=== PATIENT | male | born 1980 | race American Indian/Alaskan Native ===

== ENCOUNTER 2017-04-15 14:27 | Emergency (ER) | payer OTHER ==
[2017-04-15 14:43] VITALS: BP 117/75
--- NOTE | 2017-04-15 15:34 | XRay Report ---
LEFT FINGERS, 3 VIEWS History: Rule out fracture. Findings: Normal bone mineralization. No acute osseous findings or joint pathology. Normal soft tissues. Impression: Normal left fingers.
--- NOTE | 2017-04-15 16:16 | Emergency Department Report ---
Upper Extremity - HPI Chief Complaint: Extremity Injury, Upper Stated Complaint: LEFT FINGER INJURY Time Seen by Provider: 04/15/17 16:07 Upper Extremity: Left Index Finger (she reports that he slammed his left index finger in door, pain, swelling) Occurred When: Today Mechanism: Hit with Object Severity: severe (9/10, throbbing, better with rest and worse with movement. No [id number] medication taken for pain) Symptoms: Yes Pain with Movement (index finger, left), Yes Limited Range of Movement (index finger,left), Yes Swelling (index finger,left), No Deformity, No Numbness, No Weakness, No Bruising/Ecchymosis, No Laceration or Abrasion Other History: Pt here complaining of left index finger pain after slamming it in door today. Reports pain 9 out of 10 that source of movement better with rest. No [id number] pain medication taken prior to coming to the emergency room. Patient denies any radiation of pain or any numbness or tingling. ED Review of Systems ROS: Stated complaint: LEFT FINGER INJURY Other details as noted in HPI Comment: All other systems reviewed and negative Constitutional: no symptoms reported Cardiovascular: denies: chest pain, palpitations, edema, syncope Gastrointestinal: denies: nausea, vomiting Musculoskeletal: joint swelling, arthralgia. denies: back pain, myalgia Skin: denies: rash Neurological: denies: headache, weakness, numbness, paresthesias, confusion, abnormal gait, vertigo ED Past Medical Hx - Past Medical History Previous Medical History?: Yes Hx Asthma: Yes - Surgical History Past Surgical History?: No - Family History Family history: no significant - Social History Smoking Status: Never Smoker Substance Use Type: None - Medications Home Medications: Home Medications Medication Instructions Recorded Confirmed Last Taken Type Ibuprofen [Motrin] 600 mg PO Q8H PRN 5 Days #15 tablet 04/15/17 Unknown Rx Upper Extremity Exam - Exam General: Vital signs noted. No distress. Alert and acting appropriately. This is a 36-year-old male well-nourished well-developed in no acute distress Head and Torso: No HEENT Abnormality, No Neck Tenderness, No Chest/Lungs Abnormality, No Abdominal Tenderness, No Back Tenderness Shoulder Exam: Yes Normal Range of Motion in Shoulder, No Shoulder Tenderness, No Clavicle Tenderness, No Shoulder Deformity, No AC Joint Tenderness Arm Exam: No Arm/Humerus Tenderness, No Arm Deformity Elbow: Yes Normal Range of Motion in Elbow, No Elbow Tenderness, No Elbow Deformity Forearm: No Forearm Tenderness, No Forearm Deformity, No Pain with Pronation, No Pain with Supination Wrist: Yes Normal ROM in Wrist, No Wrist Tenderness, No Wrist Deformity, No Snuffbox Tenderness, No Pain with Axial Thumb Compression Hand: Yes Normal ROM in Digit(s), No Hand Tenderness, No Hand Deformity, No Digit Tenderness, No Digit(s) Deformity (patient with swelling to left index finger. Positive tenderness without any bony abnormality), No Tendon Dysfunction CMS Exam: Yes Broken Skin (with small abrasion to left index finger proximal phalanx and distal phalanx), Yes Normal Distal Pulses, Yes Normal Capillary Refill, Yes Normal Distal Sensation ED Course Vital Signs 04/15/17 14:41 Temperature 98.8 F Pulse Rate 59 L Respiratory 18 Rate Blood Pressure 117/75 O2 Sat by Pulse 97 Oximetry - Reevaluation(s) Reevaluation #1: 04/15/17 17:35 Patient given strict update tetanus, left index finger abrasions cleansed with normal saline and Neosporin ointment placed inside. Patient with contusion to left index finger and metal finger splint placed inside. He was given [place] 5/ 325 2 tablets in the emergency room for pain. See procedure note for detail on splinted. - Orthopedic Splinting/Casting Injury #1 Side: left Upper Extremity Injury Location: finger (index finger) Upper Extremity Immobilizer: aluminum form splint, finger (other) (left index finger) Additional Comments: Patient with good neurovascular check status post splint placement. ED Medical Decision Making - Radiology Data Radiology results: report reviewed X-ray of left index finger reveal no fracture or dislocation. Patient with soft tissue swelling to left index finger. - Medical Decision Making ED Course: An status post left index finger injury. He is complaining of pain and swelling to left index finger after slamming door on finger. X-ray report revealed patient without any bony abnormality and with soft tissue swelling. I discussed the patient that his x-ray was negative for any bone fracture but he has contusion which is swelling on the bone to his left index finger. Patient was given [place] 5/325 2 tablets in the emergency room. He has 2 abrasion to his left index finger to mid and distal phalanx. Area cleansed with normal saline and Neosporin ointment placed inside. Patient given Boostrix 0.5 mL to update tetanus and finger metal splint placed. Rice protocol explained to patient . He voiced understanding of discharge instruction, diagnosis and treatment plan and discharged home in stable condition with prescription for Motrin and to follow-up with orthopedic doctor if he continues to have pain. Critical care attestation.: If time is entered above; I have spent that time in minutes in the direct care of this critically ill patient, excluding procedure time. ED Disposition Clinical Impression: Finger pain, left Contusion of left index finger Qualifiers: Encounter type: initial encounter Damage to nail status: without damage Qualified Code(s): S60.022A - Contusion of left index finger without damage to nail, initial encounter Disposition: TO HOME OR SELFCARE Is pt being admited?: No Does the pt Need Aspirin: No Condition: Stable Instructions: Contusion in Adults (ED), Splint Care (ED), Finger Sprain (ED), Arthralgia (ED), RICE Therapy (ED) Additional Instructions: Keep affected areas clean and dry Follow instructions on RICE therapy Take motrin as prescribed Follow up with Orthopedist as discussed Prescriptions: Ibuprofen [Motrin] 600 mg PO Q8H PRN 5 Days #15 tablet PRN Reason: Pain Referrals: PRIMARY CAREMD [Primary Care Provider] - 3-5 Days JAROD OCONNELL MD [Staff Physician] - 3-5 Days Forms: Accompanied Note, Work/School Release Form(ED)
[2017-04-15] MEDS ORDERED: BOOSTRIX IM ONE (16:27)
[2017-04-15] MEDS ORDERED: TRIPLE ANTIBIOTIC TP ONE (16:27)
[2017-04-15] MEDS ORDERED: NORCO 5/325 PO ONE (16:27)
== END 2017-04-15 18:01 | disposition home or self-care (01) ==
LOC: ED 14:27
DX: S60.022A Contusion of left index finger without damage to nail, initial encounter (principal); W23.0XXA Caught, crushed, jammed, or pinched between moving objects, initial encounter; Y93.89 Activity, other specified; Y92.89 Other specified places as the place of occurrence of the external cause; Y99.8 Other external cause status
CPT/HCPCS: 90471; 90715; 99283; A6250

== ENCOUNTER 2017-06-04 19:35 | Emergency (ER) | payer OTHER ==
[2017-06-04 21:35] LABS: Basophils % (Auto) 0.7 % (0.0-1.8); Eosinophils # (Auto) 0.2 K/mm3 (0.0-0.4); Eosinophils % (Auto) 2.4 % (0.0-4.3); Hematocrit 45.8 % (35.5-45.6); Hemoglobin 15.4 gm/dl (11.8-15.2); Lymphocytes % (Auto) 29.6 % (13.4-35.0); Mean Corpuscular HGB Conc 34 % (32-34); Mean Corpuscular Hemoglobin 32 pg (28-32); Mean Corpuscular Volume 94 fl (84-94); Monocytes # (Auto) 0.6 K/mm3 (0.0-0.8); Monocytes % (Auto) 8.5 % (0.0-7.3); Platelet Count 214 K/mm3 (140-440); Red Blood Count 4.86 M/mm3 (3.65-5.03); Red Cell Distribution Width 13.5 % (13.2-15.2)
[2017-06-04 21:38] LABS: Alanine Aminotransferase 28 units/L (7-56); Albumin 4.3 g/dL (3.9-5); BUN/Creatinine Ratio 13; Blood Urea Nitrogen 12 mg/dL (9-20); Hemolysis Index 6
[2017-06-04 21:43] LABS: Bilirubin,Urine NEG (Negative); Blood,Urine SM (Negative); Color,Urine Straw (Yellow); Nitrite,Urine NEG (Negative); Protein,Urine <15 mg/dL mg/dL (Negative); Urobilinogen,Urine < 2.0 mg/dL (<2.0); WBC,Urine < 1.0 /HPF (0.0-6.0)
[2017-06-04 22:00] VITALS: BP 114/71
[2017-06-04] MEDS ORDERED: MORPHINE IV ONE (22:41)
--- NOTE | 2017-06-04 22:49 | Emergency Department Report ---
HPI - General Chief Complaint: Abdominal Pain Time Seen by Provider: 06/04/17 22:15 - HPI HPI: This is a 36-year-old male presents to the emergency department from home with complaint of a 3 day history of some right sided abdominal pain that appears to be worst in the right lower quadrant. It is associated with some nausea without vomiting. He denies any fever, diarrhea, constipation, dysuria, discharge. He took some Tylenol for his pain without much relief. The pain increases with movement. He has a past medical history of asthma. He does not have a primary care physician. No recent travel or sick contacts at home. ED Past Medical Hx - Past Medical History Hx Asthma: Yes - Surgical History Past Surgical History?: No - Social History Smoking Status: Never Smoker Substance Use Type: Alcohol - Medications Home Medications: Home Medications Medication Instructions Recorded Confirmed Last Taken Type Ibuprofen [Motrin] 600 mg PO Q8H PRN 5 Days #15 tablet 04/15/17 Unknown Rx HYDROcodone/ACETAMINOPHEN [[place] 1 each PO Q8H PRN #8 tablet 06/05/17 Unknown Rx 5-325 Tablet] ED Review of Systems ROS: Stated complaint: ABDOMINAL PAIN Other details as noted in HPI Comment: All other systems reviewed and negative Constitutional: denies: chills, fever Eyes: denies: eye pain, eye discharge, vision change ENT: denies: ear pain, throat pain Respiratory: denies: cough, shortness of breath, wheezing Cardiovascular: denies: chest pain, palpitations Gastrointestinal: abdominal pain, nausea. denies: vomiting Genitourinary: denies: urgency, dysuria Musculoskeletal: denies: back pain, joint swelling, arthralgia Skin: denies: rash, lesions Neurological: denies: headache, weakness, paresthesias Physical Exam - Physical Exam Vital Signs: Vital Signs 06/04/17 06/04/17 19:58 21:57 Temperature 98.6 F 98.9 F Pulse Rate 89 78 Respiratory 14 18 Rate Blood Pressure 119/70 Blood Pressure 114/71 [Right] O2 Sat by Pulse 96 97 Oximetry Physical Exam: GENERAL: The patient is well-developed well-nourished. HENT: Normocephalic. Atraumatic. Patient has moist mucous membranes. EYES: Extraocular motions are intact. Pupils equal reactive to light bilaterally. NECK: Supple. Trachea is midline. CHEST/LUNGS: Clear to auscultation. There is no respiratory distress noted. HEART/CARDIOVASCULAR: Regular. There is no tachycardia. There is no murmur. ABDOMEN: Abdomen is soft there is some tenderness to palpation to the right upper and lower quadrants. No guarding or rebound tenderness.. Patient has normal bowel sounds. There is no abdominal distention. SKIN: Skin is warm and dry. NEURO: The patient is awake, alert, and oriented. The patient is cooperative. The patient has no focal neurologic deficits. The patient has normal speech. MUSCULOSKELETAL: There is no tenderness or deformity. There is no limitation range of motion. There is no evidence of acute injury. ED Course Vital Signs 06/04/17 06/04/17 19:58 21:57 Temperature 98.6 F 98.9 F Pulse Rate 89 78 Respiratory 14 18 Rate Blood Pressure 119/70 Blood Pressure 114/71 [Right] O2 Sat by Pulse 96 97 Oximetry ED Medical Decision Making - Lab Data Result diagrams: 06/04/17 20:25 06/04/17 20:25 - Radiology Data Radiology results: report reviewed PROCEDURE: CT ABDOMEN PELVIS W CON TECHNIQUE: Computerized axial tomography of the abdomen and pelvis was performed after the IV injection of iodinated nonionic contrast. HISTORY: Abd pain COMPARISON: No prior studies are available for comparison. FINDINGS: Visualized lower thorax: No significant abnormality. Liver: Normal size and attenuation. Spleen: Normal size and attenuation. Gallbladder and biliary system: Normal. Pancreas: Normal. Adrenals: Normal. Kidneys: Both kidneys have a normal size. No hydronephrosis. No renal stones or masses. GI tract: The stomach is normal. The small bowel has a normal caliber without obstruction. No ileus or enteritis. The cecum, appendix and colon are normal.. Lymph nodes and mesentery: Normal. Vasculature: Normal. Bladder: Normal. Reproductive organs: Normal. Peritoneum: No free fluid. Musculoskeletal structures: No significant abnormality. Other: None. IMPRESSION: There is no evidence of an acute intestinal or urinary tract obstruction. No ileus or enteritis. The appendix is normal. Transcribed By: [facility] Dictated By: BETH BRISENO MD Electronically Authenticated By: BETH BRISEON MD Signed Date/Time: 06/04/172057 - Medical Decision Making Patient presents with a few days of right-sided abdominal pain. Labs and unremarkable. CT of the abdomen and pelvis with IV contrast does not show any acute process or etiology of his symptoms. He was given some fluid and a dose of pain medication and upon reevaluation is feeling improved. Vital signs stable throughout his ED course. He says he has good follow-up with a primary care physician. He will be discharged home with a very small amount of pain medication and encouragement to see his PCP. He will return to the ER with any worsening of symptoms or any acute distress. - Differential Diagnosis appendicitis, colitis, diverticulitis, gastroenteritis Critical care attestation.: If time is entered above; I have spent that time in minutes in the direct care of this critically ill patient, excluding procedure time. ED Disposition Clinical Impression: Abdominal pain Qualifiers: Abdominal location: unspecified location Qualified Code(s): R10.9 - Unspecified abdominal pain Disposition: TO HOME OR SELFCARE Is pt being admited?: No Condition: Stable Instructions: Abdominal Pain (ED) Additional Instructions: Please follow-up with your primary care physician in the next few days. Return to the emergency Department with any worsening of your symptoms or any acute distress. You have been prescribed a medication that is sedating and therefore should not be taken prior to driving, working, and responsible for children and in no way should be mixed with alcohol of any quantity. Prescriptions: HYDROcodone/ACETAMINOPHEN [[place] 5-325 Tablet] 1 each PO Q8H PRN #8 tablet PRN Reason: Pain Referrals: PRIMARY CARE, [Primary Care Provider] - [facility] Time of Disposition: 01:12
--- NOTE | 2017-06-05 00:59 | Cat Scan Report ---
FINAL REPORT PROCEDURE: CT ABDOMEN PELVIS W CON TECHNIQUE: Computerized axial tomography of the abdomen and pelvis was performed after the IV injection of iodinated nonionic contrast. HISTORY: Abd pain COMPARISON: No prior studies are available for comparison. FINDINGS: Visualized lower thorax: No significant abnormality. Liver: Normal size and attenuation. Spleen: Normal size and attenuation. Gallbladder and biliary system: Normal. Pancreas: Normal. Adrenals: Normal. Kidneys: Both kidneys have a normal size. No hydronephrosis. No renal stones or masses. GI tract: The stomach is normal. The small bowel has a normal caliber without obstruction. No ileus or enteritis. The cecum, appendix and colon are normal.. Lymph nodes and mesentery: Normal. Vasculature: Normal. Bladder: Normal. Reproductive organs: Normal. Peritoneum: No free fluid. Musculoskeletal structures: No significant abnormality. Other: None. IMPRESSION: There is no evidence of an acute intestinal or urinary tract obstruction. No ileus or enteritis. The appendix is normal.
== END 2017-06-05 01:36 | disposition home or self-care (01) ==
LOC: ED 19:35
DX: R10.31 Right lower quadrant pain (principal); J45.909 Unspecified asthma, uncomplicated
CPT/HCPCS: 36415; 74177; 80053; 81001; 85025; 96374; 99284; J2270; Q9967

== ENCOUNTER 2020-03-01 15:21 | Emergency (ER) | payer SELFPAY ==
--- NOTE | 2020-03-01 20:13 | Emergency Department Report ---
ED Laceration HPI - HPI Chief Complaint: Wound/Laceration Stated Complaint: LEFT HAND LAC Time Seen by Provider: 03/01/20 20:00 Occurred When: Today Location: Upper Extremity Severity: mild Tetanus Status: Up to Date Laceration Symptoms: No Foreign Body Sensation, No Numbness, No Weakness, No Pain Other History: The patient was evaluated in the emergency department for symptoms described in the history of present illness. He/she was evaluated in the context of the global COVID-19 pandemic, which necessitated consideration that the patient might be at risk for infection with the virus that causes COVID-19. Institutional protocols and algorithms that pertain to the evaluation of patients at risk for COVID-19 are in a state of rapid change based on information released by regulatory bodies including the CDC and federal and state organizations. These policies and algorithms were followed during the patient's care in the emergency department. Please note that these policies, procedures and recommendations changed on a rapid basis. 39-year-old - [place] male presents to the emergency room for left index laceration from a knife as he was cooking. Patient states that the knife was clean. Did not have much bleeding. Reports he is up-to-date on his tetanus shot. Bleeding is controlled. ED Review of Systems ROS: Stated complaint: LEFT HAND LAC Other details as noted in HPI Comment: All other systems reviewed and negative ED Past Medical Hx - Past Medical History Previous Medical History?: Yes Hx Asthma: Yes - Social History Smoking Status: Never Smoker Substance Use Type: None - Medications Home Medications: Home Medications Medication Instructions Recorded Confirmed Last Taken Type Ibuprofen [Motrin] 600 mg PO Q8H PRN 5 Days #15 tablet 04/15/17 Unknown Rx HYDROcodone/ACETAMINOPHEN [[place] 1 each PO Q8H PRN #8 tablet 06/05/17 Unknown Rx 5-325 Tablet] Ibuprofen [Motrin] 800 mg PO Q8HR PRN #30 tablet 03/17/18 Unknown Rx Sulfamethoxazole/Trimethoprim 2 each PO BID #28 tablet 03/17/18 Unknown Rx [Bactrim DS TAB] Laceration Physical Exam - Exam General: Vital signs noted. No distress. Alert and acting appropriately. Wound Length (cm): 1 Laceration Location: Upper Extremity Laceration Exam: Yes Normal Distal CMS, No Foreign Body, No Exposed Tendon, Vessel, or Nerve, No Tendon Injury ED Course Vital Signs 10/17/20 15:29 Temperature 98.4 F Pulse Rate 77 Respiratory 18 Rate Blood Pressure 152/102 [Right] O2 Sat by Pulse 97 Oximetry - Laceration /Wound Repair Left Finger Wound Location: upper extremity (Left index finger) Wound Length (cm): 1 Wound's Depth, Shape: into muscle Wound Explored: no foreign body removed Irrigated w/ Saline (ccs): 250 Betadine Prep?: Yes Wound Repaired With: Steri-strips, Dermabond Sterile Dressing Applied?: Yes Progress: Tolerated well ED Medical Decision Making - Medical Decision Making 39-year-old -[place] male presents the emergency room for left index laceration from a knife as he was cooking. Patient states that the knife was clean. Did not have much bleeding. Reports he is up-to-date on his tetanus shot. Bleeding is controlled. Index finger was soaked with water and Betadine. Was able to use adhesive glue with Steri-Strips. Instructed patient to keep wound clean and dry do not pick the Steri-Strips further glue. Return if the finger looks swollen red or purulent discharge or comes down with a fever. Patient verbalized understanding Critical care attestation.: If time is entered above; I have spent that time in minutes in the direct care of this critically ill patient, excluding procedure time. ED Disposition Clinical Impression: Laceration of index finger Disposition: DC-01 TO HOME OR SELFCARE Is pt being admited?: No Does the pt Need Aspirin: No Condition: Stable Instructions: Laceration (ED), Skin Adhesive Care (ED) Additional Instructions: Keep wound clean and dry do not pick off Steri-Strips or glue. Return back to the emergency room if there is any swelling redness or purulent discharge. Tylenol or ibuprofen should work with your pain. Referrals: SILVIA SWANSON MD [Primary Care Provider] - 3-5 Days Forms: Work/School Release Form(ED)
[2020-03-01 20:33] VITALS: BP 150/105
== END 2020-03-01 20:34 | disposition home or self-care (01) ==
LOC: ED 15:21
DX: S61.211A Laceration without foreign body of left index finger without damage to nail, initial encounter (principal); J45.909 Unspecified asthma, uncomplicated; Z79.899 Other long term (current) drug therapy; W26.0XXA Contact with knife, initial encounter; Y93.89 Activity, other specified; Y92.89 Other specified places as the place of occurrence of the external cause; Y99.8 Other external cause status